=== PATIENT | female | born 2000 | race African-American/Black ===

== ENCOUNTER 2020-04-30 22:12 | Emergency (ER) | payer SELFPAY ==
[2020-04-30 22:58] LABS: Bilirubin Negative (Negative); Blood, Urine Negative (Negative); Clarity Turbid (Clear); Glucose, Urine (Dipstick) Normal (Negative); Ketone, Urine Negative (Negative); Leukocyte 75 Leu/uL (Negative); Nitrite Negative (Negative); Pregnancy Test - Urine (BHCG) Negative (Negative); Pregu Control Background? CLEAR/WHITE (CLR/WHITE); Pregu Control Bar Appear? YES (CONTROL BAR); Protein, Urine (Dipstick) 10 mg/dL (Neg-Trace); RBC/HPF 0-3 HPF (0-3); Specific Gravity 1.028 (1.002-1.036); Specific Gravity, Urine 1.028 (1.002-1.036); Urobilinogen Normal mg/dL (Less than 2); pH, Urine 5.5 (5.0-9.0)
[2020-04-30 22:59] LABS: Bacteria/HPF 1+ HPF (None Seen)
[2020-04-30 23:07] LABS: Amphetamine Not Detected (NotDetected); Barbiturates Screen Not Detected (NotDetected); Benzodiazepine Screen Not Detected (NotDetected); Cocaine Metabolite Screen Not Detected (NotDetected); Medtox Control Line Valid? VALID (VALID); Medtox Reader # READER 4; Methadone Not Detected (NotDetected); Methamphetamine Not Detected (NotDetected); Opiate Screen Not Detected (NotDetected); Oxycodone Screen Not Detected (NotDetected); Phencyclidine (PCP) Not Detected (NotDetected); THC/Cannabinoid Screen Detected (NotDetected); Tricyclic Screen Not Detected (NotDetected)
[2020-04-30 23:36] LABS: Hemoglobin 13.7 g/dL (12.0-16.0); Mean Corpuscular Hemoglobin 33.2 pg (25.0-35.0); Mean Corpuscular Volume 97.7 fL (78.0-98.0); Mean Platelet Volume 8.9 fL (7.4-10.4); Platelet Count 278 thou/uL (130-400); RBC Distribution Width 11.3 % (11.5-14.5); Red Blood Cell (RBC) Count 4.11 mill/uL (4.00-5.20); White Blood Cell (WBC) Count 5.8 thou/uL (4.8-10.8)
[2020-04-30 23:47] LABS: Eosinophils 3 % (0-10); Lymphocytes 48 % (28-48); MDiff Complete? YES; Monocytes 2 % (0-4); Neutrophil 46 % (31-61); Reactive Lymphocytes 1 % (0-10)
[2020-04-30 23:52] LABS: ALT (SGPT) 13 U/L (8-55); AST (SGOT) 14 U/L (5-34); Albumin 4.5 g/dL (3.5-5.0); Alcohol Less than 10 mg/dL (Less than 10); Alkaline Phosphatase 55 U/L (40-100); Anion Gap 15 mmol/L (10-20); BUN (Urea Nitrogen) 9 mg/dL (7.0-18.7); Bilirubin, Total 0.2 mg/dL (0.2-1.2); Calc. Creatinine Clearance 0 mL/min (70-130); Calcium 9.3 mg/dL (7.8-10.44); Carbon Dioxide 21 mmol/L (22-29); Chloride 111 mmol/L (98-107); Glucose 95 mg/dL (70-105); Protein, Total 7.5 g/dL (6.0-8.3); Sodium 143 mmol/L (136-145)
[2020-04-30 23:53] LABS: Acetaminophen Less than 6.0 mcg/mL (10.0-30.0); Alcohol Less than 10 mg/dL (Less than 10); CK (CPK) 84 U/L (29-168); Salicylate Less than 8.0 mg/dL (15.0-30.0)
[2020-05-01] MEDS ORDERED: Escitalopram Oxalate 10 mg Tablet PO SCH (07:15)
[2020-05-01] MEDS ORDERED: Acetaminophen 325 MG TAB ONE (11:39)
== END 2020-05-01 11:53 ==
LOC: ERS 22:12
DX: R45.851 Suicidal ideations (principal); Z79.899 Other long term (current) drug therapy
CPT/HCPCS: 80053; 80306; 80307; 81003; 81015; 81025; 82550; 85025; 99285